=== PATIENT | male | born 1945 | race Caucasian/White ===

== ENCOUNTER 2022-06-27 10:54 | Day surgery (SDC) | payer MEDICARE, BC ==
[~2022-06-27] VITALS: Ht 182.9 cm; Wt 90.2 kg
[2022-06-27] VITALS (11 sets, daily range): BP systolic 128–200; BP diastolic 84–125
[~2022-06-27 10:54] MED LIST: ASPI1CPM9 PO; ENOX100S3 SQ; SYN0.025T PO
[2022-06-27] MEDS ORDERED: WARF-55 PO (11:22)
[2022-06-27] MEDS ORDERED: LEVO300T2 PO (11:22)
[2022-06-27] MEDS ORDERED: SOTA80TA73 PO (11:22)
[2022-06-27] MEDS ORDERED: BENA10TA75 PO (11:22)
[2022-06-27] MEDS ORDERED: CHLO25TA10 PO (11:22)
[2022-06-27] MEDS ORDERED: MIDAZolam 1mg/ml 10ml vial IV ONE (11:25)
[2022-06-27] MEDS ORDERED: fentaNYL/PF 50MCG/1 ML 2ML syringe IV ONE (11:25)
[2022-06-27] MEDS ORDERED: normal saline 1000ml 1,000 ML IV SCH (11:25)
== END 2022-06-27 14:50 | disposition home or self-care (01) ==
LOC: SSTAY O 10:54
PROVIDERS: ATTEND Student in an Organized Health Care Education/Training Program
DX: I48.91 Unspecified atrial fibrillation (principal); E03.9 Hypothyroidism, unspecified; Z86.73 Personal history of transient ischemic attack (TIA), and cerebral infarction without residual deficits; Z79.899 Other long term (current) drug therapy; Z98.890 Other specified postprocedural states
CPT/HCPCS: 92960; 93005; J2250; J3010; J7030; A4620

== ENCOUNTER 2024-03-25 15:56 | Inpatient (IN) | payer MEDICARE, BC ==
[~2024-03-25] VITALS: Ht 177.8 cm; Wt 97.8 kg
[2024-03-25] VITALS (8 sets, daily range): BP systolic 85–115; BP diastolic 57–84; PULSE 103–124; RESP 14–39; TEMP 101.5; O2SAT 87–94
[~2024-03-25 15:56] MED LIST changes: -ASPI1CPM9 PO; +BENA10TA75 PO; +CHLO25TA10 PO; -ENOX100S3 SQ; +LEVO300T2 PO; +SOTA80TA73 PO; -SYN0.025T PO; +WARF-55 PO
[2024-03-25 16:44] LABS: BASOPHILS # (AUTO) 0.3 X10'3 (0-0.2); EOSINOPHILS % (AUTO) 0.1 % (0-6); HEMATOCRIT 50.9 % (42.0-52.0); HEMOGLOBIN 17.1 g/dl (14.0-17.9); LYMPHOCYTES # (AUTO) 0.2 X10'3 (1.1-4.8); LYMPHOCYTES % (AUTO) 0.5 % (21-51); MEAN CORPUSCULAR HEMOGLOBIN 30.8 PG (27.0-31.0); MEAN CORPUSCULAR HGB CONC 33.6 g/dL (33.0-36.5); MEAN CORPUSCULAR VOLUME 91.8 FL (78-98); MEAN PLATELET VOLUME 7.5 FL (7.4-10.4); MONOCYTES # (AUTO) 0.4 X10'3 (0-0.9); MONOCYTES % (AUTO) 1.1 % (2-12); NEUTROPHILS # (AUTO) 31.9 X10'3 (1.8-7.7); NEUTROPHILS % (AUTO) 97.3 % (42-75); PLATELET COUNT 264 X10'3 (140-440); RED BLOOD COUNT 5.54 X10'6 (4.70-6.10); RED CELL DISTRIBUTION WIDTH 15.9 % (11.5-14.5)
[2024-03-25 16:50] LABS: WHITE BLOOD COUNT 32.8 X10'3 (4.5-11.0)
[2024-03-25 17:03] LABS: BURR CELLS 1+; PLATELET ESTIMATE NORMAL; TOTAL CELLS COUNTED 100
[2024-03-25 17:04] LABS: ELLIPTOCYTES FEW
[2024-03-25 17:06] LABS: ABG BASE EXCESS -1.6 mmol/L (-2.0-2.0); ABG HCO3 19.4 mmol/L (22.0-26.0); ABG OXYGEN SATURATION 95.5 % (94-97); ABG PCO2 (T) 25.3 mmHg (35.0-48.0); ABG PH (T) 7.502 (7.340-7.440); ABG PO2 (T) 73.6 mmHg (75.0-100.0); ALLEN'S TEST POSITIVE; FCOHb 0.3 % (0.0-3.9); FHHb 4.5 % (0.0-5.0); FMetHb 0.5 % (0.0-1.5); FO2Hb 94.7 % (94-97); MODE MASK - BIPAP; RESPIRATORY RATE 16 b/min; TOTAL HEMOGLOBIN 17.1 G/dl (14.0-17.9)
[2024-03-25 17:17] LABS: ALANINE AMINOTRANSFERASE 21 U/L (12-78); ALBUMIN 2.3 G/DL (3.4-5.0); ALBUMIN/GLOBULIN RATIO 0.5 (1.1-1.5); ALKALINE PHOSPHATASE 75 IU/L (46-116); ANION GAP 14 (8-16); ASPARTATE AMINO TRANSFERASE 16 U/L (10-37); BILIRUBIN,TOTAL 0.8 MG/DL (0.1-1.0); BLOOD UREA NITROGEN 68 MG/DL (7-18); BUN/CREATININE RATIO 29.6 (10.0-20.0); CALCIUM 9.3 MG/DL (8.5-10.1); CHLORIDE 103 MMOL/L (99-107); GLUCOSE 118 MG/DL (70-104); POTASSIUM 3.7 MMOL/L (3.5-5.1); SODIUM 139 MMOL/L (135-145); TOTAL CARBON DIOXIDE 22.1 MMOL/L (24-32); TOTAL PROTEIN 6.5 G/DL (6.4-8.2); eCRCL 28 ML/MIN; eGFR 28 ML/MIN
[2024-03-25 17:21] LABS: BILIRUBIN,DIRECT 0.4 MG/DL (0-0.3); MAGNESIUM 2.3 MG/DL (1.5-2.4)
[2024-03-25] MEDS: ringers solution, lacted 1,000 ML IV ONE (17:59)
[2024-03-25] MEDS: ringers solution, lactated 1000ml IV soln IV ONE ×2 (17:59→20:42)
[2024-03-25] MEDS: propofol 1000mg/100ml bottle 100 ML IV SCH (19:12)
[2024-03-25] MEDS: acetaminophen 1,000mg/100ml IV 100 ML IV ONE (19:15)
[2024-03-25] MEDS: etomidate 2mg/ml inj. IV ONE (19:15)
[2024-03-25] MEDS: rocuronium 10mg/ml inj IV ONE (19:16)
[2024-03-25] MEDS: MIDAZolam 5mg/ml 2ml vial IV ONE (19:17)
[2024-03-25] MEDS ORDERED: acetaminophen 325mg tablet PO PRN (20:05)
[2024-03-25 20:32] LABS: BILIRUBIN,URINE SMALL (Neg); CLARITY,URINE CLOUDY (Clear); COLOR,URINE AMBER (Yellow); GLUCOSE, URINE NEGATIVE (Neg); KETONES,URINE NEGATIVE (Neg); LEUKOCYTE ESTERASE ,URINE NEGATIVE (Neg); NITRITES, URINE NEGATIVE (Neg); OCCULT BLOOD,URINE MODERATE (Neg); PH,URINE 5.5 (4.8-8.0); PROTEIN,URINE 30 mg/dl (Neg); UROBILINOGEN,URINE 0.2 E.U/dL (0.2-1.0)
[2024-03-25 20:37] LABS: UA COLLECTION TYPE STRAIGHT CATH
[2024-03-25 20:40] LABS: AMORPHOUS URATES 1+; SQUAMOUS EPITHELIAL CELL,UR MODERATE /LPF (FEW)
[2024-03-25 20:41] LABS: TRANSITIONAL EPI CELLS,URINE FEW /HPF
[2024-03-25 20:42] LABS: BACTERIA,URINE FEW /HPF (Neg); WBC,URINE 0-4 /HPF (0-4)
[2024-03-25 20:43] LABS: FINE GRANULAR CAST 0-3 /LPF (NEGATIVE); HYALINE CASTS 0-3 /LPF (NEGATIVE); RBC,URINE 0-2 /HPF (0-2)
[2024-03-25] MEDS: vancomycin/NS 1 GM ADD-VANTAGE 250 ML X 1 DOSE IV ONE ×2 (21:08)
[2024-03-25 21:32] LABS: ABG OXYGEN SATURATION 90.1 % (94-97); ABG PH (T) 7.323 (7.340-7.440); ABG PO2 (T) 68.3 mmHg (75.0-100.0); ALLEN'S TEST Modified; FHHb 9.9 % (0.0-5.0); FMetHb 0.5 % (0.0-1.5); FO2Hb 89.6 % (94-97); MODE VENT-AC/VC; PATIENT TEMPERATURE 38.5; PEEP 5 cm H2O; RESPIRATORY RATE 14 b/min; TIDAL VOLUME 500 mL; TOTAL HEMOGLOBIN 16.9 G/dl (14.0-17.9)
[2024-03-25] MEDS: NORepinephrine 8mg/ 250ml NS 250 ML IV PRN (23:46)
[2024-03-26] VITALS (42 sets, daily range): BP systolic 83–111; BP diastolic 47–79; PULSE 101–134; RESP 14–29; O2SAT 87–99
[2024-03-26] MEDS: heparin, porcine 5000 units/ml vial SQ SCH (00:15)
[2024-03-26 03:27] LABS: ABG BASE EXCESS -3.5 mmol/L (-2.0-2.0); ABG HCO3 18.9 mmol/L (22.0-26.0); ABG OXYGEN SATURATION 90.9 % (94-97); ABG PCO2 (T) 28.5 mmHg (35.0-48.0); ABG PH (T) 7.441 (7.340-7.440); ABG PO2 (T) 58.4 mmHg (75.0-100.0); FCOHb 0.1 % (0.0-3.9); FHHb 9.1 % (0.0-5.0); FMetHb 0.1 % (0.0-1.5); FO2Hb 90.7 % (94-97); MODE AC/PRVC; PATIENT TEMPERATURE 37.1; PEEP 10 cm H2O; RESPIRATORY RATE 14 b/min; TIDAL VOLUME 500 mL; TOTAL HEMOGLOBIN 16.3 G/dl (14.0-17.9)
[2024-03-26 03:33] LABS: BASOPHILS % (AUTO) 0.1 % (0-1); EOSINOPHILS # (AUTO) 0.2 X10'3 (0-0.9); EOSINOPHILS % (AUTO) 0.8 % (0-6); HEMATOCRIT 45.1 % (42.0-52.0); HEMOGLOBIN 15.3 g/dl (14.0-17.9); LYMPHOCYTES # (AUTO) 0.3 X10'3 (1.1-4.8); MEAN CORPUSCULAR HEMOGLOBIN 30.9 PG (27.0-31.0); MEAN CORPUSCULAR HGB CONC 33.9 g/dL (33.0-36.5); MEAN CORPUSCULAR VOLUME 91.2 FL (78-98); MEAN PLATELET VOLUME 7.6 FL (7.4-10.4); MONOCYTES # (AUTO) 0.1 X10'3 (0-0.9); MONOCYTES % (AUTO) 0.4 % (2-12); NEUTROPHILS # (AUTO) 28.2 X10'3 (1.8-7.7); NEUTROPHILS % (AUTO) 97.7 % (42-75); PLATELET COUNT 250 X10'3 (140-440); RED BLOOD COUNT 4.95 X10'6 (4.70-6.10); RED CELL DISTRIBUTION WIDTH 15.4 % (11.5-14.5)
[2024-03-26 03:36] LABS: WHITE BLOOD COUNT 28.9 X10'3 (4.5-11.0)
[2024-03-26] MEDS ORDERED: fentaNYL/PF 50MCG/1 ML 2ML syringe IV PRN (03:40)
[2024-03-26 03:45] LABS: ALBUMIN 1.8 G/DL (3.4-5.0); ANION GAP 10 (8-16); BLOOD UREA NITROGEN 72 MG/DL (7-18); BUN/CREATININE RATIO 31.2 (10.0-20.0); CALCIUM 8.7 MG/DL (8.5-10.1); CHLORIDE 105 MMOL/L (99-107); CREATININE 2.31 MG/DL (0.60-1.10); GLUCOSE 96 MG/DL (70-104); MAGNESIUM 2.3 MG/DL (1.5-2.4); POTASSIUM 3.4 MMOL/L (3.5-5.1); SODIUM 140 MMOL/L (135-145); TOTAL CARBON DIOXIDE 24.6 MMOL/L (24-32); eCRCL 28 ML/MIN; eGFR 28 ML/MIN
[2024-03-26] MEDS ORDERED: LEVO175T2 PO (03:49)
[2024-03-26] MEDS ORDERED: BENA40TA73 PO (03:50)
[2024-03-26] MEDS ORDERED: AMLO2.5T2 PO (03:55)
[2024-03-26] MEDS ORDERED: WARF-55 PO (03:55)
[2024-03-26] MEDS ORDERED: METO-395 PO (03:58)
[2024-03-26] MEDS ORDERED: ROSU20TA2 PO (04:00)
[2024-03-26] MEDS ORDERED: MECO10005 PO (04:02)
[2024-03-26] MEDS ORDERED: OMEG-133 PO (04:02)
[2024-03-26] MEDS ORDERED: CALC1CAP PO (04:11)
[2024-03-26] MEDS ORDERED: LUTE1CAP5 PO (04:14)
[2024-03-26] MEDS ORDERED: SAW450CA7 PO (04:15)
[2024-03-26] MEDS: potassium Cl 20mEq/100mL bag 100 ML IV SCH (04:15)
[2024-03-26 04:45] LABS: PLATELET ESTIMATE NORMAL; TOTAL CELLS COUNTED 100
[2024-03-26 04:47] LABS: BURR CELLS 1+; TEAR DROP CELLS FEW
[2024-03-26] MEDS: acetaminophen 325mg/10.15ml oral unit dose solution OGT PRN (08:00)
[2024-03-26] MEDS: lansoprazole 15mg solutab OGT SCH (08:00)
[2024-03-26] MEDS: amiodarone 150mg/dext, iso-os 100 ML IV ONE (08:30)
[2024-03-26] MEDS: levoFLOXACIN-Levaquin 750MG/D5 150 ML IV STA (08:52)
[2024-03-26] MEDS: fentaNYL/PF 50MCG/1 ML 2ML syringe IV ONE (09:03)
[2024-03-26] MEDS: amiodarone/D5 360MG/200ML BAG 200 ML IV SCH (09:03)
[2024-03-26] MEDS: ipratropium/albuterol 3ml nebule NEB SCH (09:06)
[2024-03-26 09:12] LABS: ALBUMIN 1.9 G/DL (3.4-5.0); ANION GAP 10 (8-16); BLOOD UREA NITROGEN 74 MG/DL (7-18); CALCIUM 8.8 MG/DL (8.5-10.1); CHLORIDE 107 MMOL/L (99-107); CREATININE 2.31 MG/DL (0.60-1.10); GLUCOSE 78 MG/DL (70-104); POTASSIUM 3.8 MMOL/L (3.5-5.1); SODIUM 141 MMOL/L (135-145); TOTAL CARBON DIOXIDE 23.9 MMOL/L (24-32); eCRCL 28 ML/MIN; eGFR 28 ML/MIN
[2024-03-26] MEDS: acetylcysteine 200 MG/ml 4ml vial INH SCH (09:23)
[2024-03-26] MEDS: FENTANYL-0.9 % NACL/PF 100 ML IV SCH (09:28)
[2024-03-26] MEDS ORDERED: AMLO5TAB PO (10:21)
[2024-03-26] MEDS ORDERED: MULT-1085 PO (10:21)
[2024-03-26] MEDS: albumin (human) 25% 100ml IV 400 ML IV ONE (11:42)
[2024-03-26] MEDS: ringers solution, lacted 1,000 ML IV SCH (11:53)
[2024-03-26] MEDS: albumin (Human) 5% 250ml 250 ML IV SCH (12:08)
[2024-03-26 15:04] LABS: PROTHROMBIN TIME 89.9 SECONDS (9.0-12.0)
[2024-03-26 15:07] LABS: INR > 8.0 INR
[2024-03-26] MEDS ORDERED: phytonadione inj. 5 MG in normal saline 100ml IV soln 100 ML IV ONE (15:20)
[2024-03-26] MEDS: phytonadione 10 MG/1 ML amp NG ONE (17:14)
[2024-03-26] MEDS: NORepinephrine 8mg/ 250ml NS 250 ML IV PRN (17:21)
[2024-03-27] VITALS (44 sets, daily range): BP systolic 75–122; BP diastolic 47–74; PULSE 102–140; RESP 14–22; O2SAT 89–97
[2024-03-27] MEDS: PERFLUTREN PROTEIN-A MICROSPHR (Optison) 0.22 MG/ML 3ML VIAL IV ONE (01:40)
[2024-03-27 02:46] LABS: BASOPHILS # (AUTO) 0.2 X10'3 (0-0.2); BASOPHILS % (AUTO) 0.7 % (0-1); EOSINOPHILS # (AUTO) 0.4 X10'3 (0-0.9); EOSINOPHILS % (AUTO) 1.3 % (0-6); HEMATOCRIT 36.9 % (42.0-52.0); HEMOGLOBIN 12.3 g/dl (14.0-17.9); LYMPHOCYTES # (AUTO) 0.5 X10'3 (1.1-4.8); LYMPHOCYTES % (AUTO) 1.8 % (21-51); MEAN CORPUSCULAR HEMOGLOBIN 30.9 PG (27.0-31.0); MEAN CORPUSCULAR HGB CONC 33.3 g/dL (33.0-36.5); MEAN CORPUSCULAR VOLUME 92.6 FL (78-98); MEAN PLATELET VOLUME 7.5 FL (7.4-10.4); MONOCYTES % (AUTO) 0.1 % (2-12); NEUTROPHILS # (AUTO) 27.8 X10'3 (1.8-7.7); NEUTROPHILS % (AUTO) 96.1 % (42-75); PLATELET COUNT 193 X10'3 (140-440); RED BLOOD COUNT 3.99 X10'6 (4.70-6.10); RED CELL DISTRIBUTION WIDTH 16.7 % (11.5-14.5)
[2024-03-27 02:49] LABS: WHITE BLOOD COUNT 28.9 X10'3 (4.5-11.0)
[2024-03-27 02:55] LABS: ALBUMIN 3.4 G/DL (3.4-5.0); ANION GAP 14 (8-16); BLOOD UREA NITROGEN 79 MG/DL (7-18); BUN/CREATININE RATIO 28.6 (10.0-20.0); CALCIUM 8.3 MG/DL (8.5-10.1); CHLORIDE 105 MMOL/L (99-107); CREATININE 2.76 MG/DL (0.60-1.10); GLUCOSE 123 MG/DL (70-104); MAGNESIUM 2.3 MG/DL (1.5-2.4); PHOSPHORUS 6.1 MG/DL (2.3-4.5); PREALBUMIN 9.4 MG/DL (19-36); SODIUM 141 MMOL/L (135-145); TOTAL CARBON DIOXIDE 22.3 MMOL/L (24-32); eCRCL 23 ML/MIN; eGFR 22 ML/MIN
[2024-03-27 02:56] LABS: POTASSIUM 3.6 MMOL/L (3.5-5.1)
[2024-03-27 03:05] LABS: PROTHROMBIN TIME 89.9 SECONDS (9.0-12.0)
[2024-03-27 03:06] LABS: INR > 8.0 INR
[2024-03-27 03:22] LABS: ABG OXYGEN SATURATION 94.1 % (94-97); ABG PCO2 (T) 42.2 mmHg (35.0-48.0); ABG PH (T) 7.284 (7.340-7.440); ABG PO2 (T) 67.1 mmHg (75.0-100.0); ALLEN'S TEST POSITIVE; FCOHb 0.3 % (0.0-3.9); FHHb 5.9 % (0.0-5.0); FMetHb 0.3 % (0.0-1.5); FO2Hb 93.5 % (94-97); MODE VENT - AC; PATIENT TEMPERATURE 35.2; PEEP 10 cm H2O; RESPIRATORY RATE 14 b/min; TIDAL VOLUME 500 mL; TOTAL HEMOGLOBIN 13.1 G/dl (14.0-17.9)
[2024-03-27 03:46] LABS: TOTAL CELLS COUNTED 100
[2024-03-27 03:47] LABS: ANISOCYTOSIS 1+; PLATELET ESTIMATE NORMAL
[2024-03-27 03:50] LABS: BURR CELLS 1+; TEAR DROP CELLS FEW; TOXIC GRANULATION 1+; TOXIC VACUOLATION FEW
[2024-03-27] MEDS: pantoprazole 40MG/NS 100ML BAG 100 ML IV SCH (07:46)
[2024-03-27] MEDS: cefepime 1GM/NS ADD-VANTAGE 100 ML IV SCH (07:46)
[2024-03-27] MEDS: phytonadione inj. 10 MG in normal saline 100ml IV soln 100 ML IV ONE (10:25)
[2024-03-27 12:12] LABS: SODIUM,URINE RANDOM < 15 MEQ/L
[2024-03-27 12:14] LABS: CLARITY,URINE Cloudy (Clear); COLOR,URINE Brown (Yellow); UA COLLECTION TYPE FOLEY CATH
[2024-03-27 12:16] LABS: BACTERIA,URINE 1+ /HPF (Neg); RBC,URINE TNTC /HPF (0-2); SQUAMOUS EPITHELIAL CELL,UR NONE SEEN /LPF (FEW)
[2024-03-27 13:02] LABS: UA EOSINOPHILS NO EOS /HPF
[2024-03-27] MEDS: sennosides/docusate sodium tablet PO SCH (20:29)
[2024-03-27 20:38] LABS: INR 2.3 INR; PROTHROMBIN TIME 23.3 SECONDS (9.0-12.0)
[2024-03-27] MEDS: FENTANYL-0.9 % NACL/PF 100 ML IV SCH (22:00)
[2024-03-27] MEDS: propofol 1000mg/100ml bottle 100 ML IV SCH (22:01)
[2024-03-28] VITALS (48 sets, daily range): BP systolic 76–109; BP diastolic 45–69; PULSE 109–131; RESP 16; O2SAT 87–95
[2024-03-28] MEDS: metoclopramide 5 mg/ml inj IV SCH (00:59)
[2024-03-28] MEDS ORDERED: NORepinephrine 32 MG in normal saline 250ml IV soln 218 ML IV SCH (01:50)
[2024-03-28 03:09] LABS: ABG BASE EXCESS -7.8 mmol/L (-2.0-2.0); ABG HCO3 19.1 mmol/L (22.0-26.0); ABG OXYGEN SATURATION 91.2 % (94-97); ABG PCO2 (T) 44.3 mmHg (35.0-48.0); ABG PH (T) 7.253 (7.340-7.440); ABG PO2 (T) 64.8 mmHg (75.0-100.0); ALLEN'S TEST Modified; FCOHb 0.3 % (0.0-3.9); FHHb 8.8 % (0.0-5.0); FO2Hb 90.9 % (94-97); MODE VENT - PRVC; PATIENT TEMPERATURE 37.1; PEEP 10 cm H2O; RESPIRATORY RATE 16 b/min; TIDAL VOLUME 500 mL; TOTAL HEMOGLOBIN 13.3 G/dl (14.0-17.9)
[2024-03-28 03:27] LABS: BASOPHILS # (AUTO) 0.2 X10'3 (0-0.2); BASOPHILS % (AUTO) 0.4 % (0-1); EOSINOPHILS # (AUTO) 0.6 X10'3 (0-0.9); EOSINOPHILS % (AUTO) 1.7 % (0-6); HEMATOCRIT 37.7 % (42.0-52.0); HEMOGLOBIN 12.3 g/dl (14.0-17.9); LYMPHOCYTES # (AUTO) 0.4 X10'3 (1.1-4.8); LYMPHOCYTES % (AUTO) 1.2 % (21-51); MEAN CORPUSCULAR HEMOGLOBIN 30.3 PG (27.0-31.0); MEAN CORPUSCULAR HGB CONC 32.7 g/dL (33.0-36.5); MEAN CORPUSCULAR VOLUME 92.9 FL (78-98); MEAN PLATELET VOLUME 8.3 FL (7.4-10.4); MONOCYTES # (AUTO) 0.6 X10'3 (0-0.9); MONOCYTES % (AUTO) 1.6 % (2-12); NEUTROPHILS # (AUTO) 33.5 X10'3 (1.8-7.7); NEUTROPHILS % (AUTO) 95.1 % (42-75); PLATELET COUNT 195 X10'3 (140-440); RED BLOOD COUNT 4.06 X10'6 (4.70-6.10); RED CELL DISTRIBUTION WIDTH 16.3 % (11.5-14.5)
[2024-03-28 03:32] LABS: WHITE BLOOD COUNT 35.2 X10'3 (4.5-11.0)
[2024-03-28 03:36] LABS: PROTHROMBIN TIME 19.5 SECONDS (9.0-12.0)
[2024-03-28 03:40] LABS: ALANINE AMINOTRANSFERASE 33 U/L (12-78); ALBUMIN 3.2 G/DL (3.4-5.0); ALBUMIN/GLOBULIN RATIO 1.3 (1.1-1.5); ALKALINE PHOSPHATASE 100 IU/L (46-116); ANION GAP 16 (8-16); ASPARTATE AMINO TRANSFERASE 85 U/L (10-37); BLOOD UREA NITROGEN 82 MG/DL (7-18); BUN/CREATININE RATIO 22.2 (10.0-20.0); CALCIUM 8.1 MG/DL (8.5-10.1); CHLORIDE 105 MMOL/L (99-107); GLUCOSE 89 MG/DL (70-104); MAGNESIUM 2.5 MG/DL (1.5-2.4); PHOSPHORUS 5.2 MG/DL (2.3-4.5); SODIUM 142 MMOL/L (135-145); TOTAL CARBON DIOXIDE 21.1 MMOL/L (24-32); TOTAL PROTEIN 5.6 G/DL (6.4-8.2); eCRCL 17 ML/MIN; eGFR 16 ML/MIN
[2024-03-28 03:41] LABS: POTASSIUM 4.1 MMOL/L (3.5-5.1)
[2024-03-28] MEDS: NORepinephrine 32 MG in normal saline 250ml IV soln 218 ML IV PRN ×2 (03:53→17:58)
[2024-03-28 04:55] LABS: ANISOCYTOSIS 1+; PLATELET ESTIMATE NORMAL; TOTAL CELLS COUNTED 100
[2024-03-28 04:57] LABS: BURR CELLS 1+; SCHISTOCYTES FEW; TEAR DROP CELLS 1+
[2024-03-28] MEDS ORDERED: DEXTROSE 15 GM of carb/4 tabs (each vial/BOTTLE has 4 tablets) PO PRN ×2 (08:25)
[2024-03-28] MEDS ORDERED: glucagon, human recombinant 1mg kit SUBCUT PRN (08:25)
[2024-03-28] MEDS: dextrose 50%-water 50ml dispensing syringe IV PRN ×2 (08:56→14:16)
[2024-03-28] MEDS: dextrose 50%-water 50ml dispensing syringe IV ONE (09:10)
[2024-03-28] MEDS: levoFLOXACIN-Levaquin 750MG/D5 150 ML IV SCH (09:18)
[2024-03-28] MEDS ORDERED: vasopressin inj. 40 UNIT in dextrose 5%-water 50ml 38 ML IV SCH (09:40)
[2024-03-28] MEDS ORDERED: vasopressin inj. 40 UNIT in normal saline 50ml IV soln 38 ML IV SCH (09:42)
[2024-03-28] MEDS: vasopressin inj. 40 UNIT in normal saline 50ml IV soln 38 ML IV SCH (11:53)
[2024-03-28 21:02] LABS: ABG PH (T) 7.281 (7.340-7.440); ALLEN'S TEST Modified; MODE VENT - prvc; PATIENT TEMPERATURE 36.6; PEEP 10 cm H2O; RESPIRATORY RATE 16 b/min; TIDAL VOLUME 500 mL
[2024-03-28 21:03] LABS: ABG HCO3 17.1 mmol/L (22.0-26.0); ABG PO2 (T) 61.2 mmHg (75.0-100.0); FCOHb 0.3 % (0.0-3.9); FMetHb 0.1 % (0.0-1.5); FO2Hb 91.6 % (94-97); TOTAL HEMOGLOBIN 12.8 G/dl (14.0-17.9)
[2024-03-28] MEDS: sennosides/docusate sodium tablet OGT SCH (21:59)
[2024-03-29] VITALS (24 sets, daily range): BP systolic 97–122; BP diastolic 57–71; PULSE 105–117; RESP 12–16; O2SAT 87–94
[2024-03-29 02:49] LABS: BASOPHILS # (AUTO) 0.1 X10'3 (0-0.2); BASOPHILS % (AUTO) 0.4 % (0-1); EOSINOPHILS # (AUTO) 0.6 X10'3 (0-0.9); EOSINOPHILS % (AUTO) 1.6 % (0-6); HEMATOCRIT 35.4 % (42.0-52.0); HEMOGLOBIN 11.7 g/dl (14.0-17.9); LYMPHOCYTES # (AUTO) 0.3 X10'3 (1.1-4.8); LYMPHOCYTES % (AUTO) 0.9 % (21-51); MEAN CORPUSCULAR HEMOGLOBIN 30.3 PG (27.0-31.0); MEAN CORPUSCULAR HGB CONC 33.1 g/dL (33.0-36.5); MEAN CORPUSCULAR VOLUME 91.7 FL (78-98); MEAN PLATELET VOLUME 8.1 FL (7.4-10.4); MONOCYTES # (AUTO) 0.6 X10'3 (0-0.9); MONOCYTES % (AUTO) 1.5 % (2-12); NEUTROPHILS # (AUTO) 34.8 X10'3 (1.8-7.7); NEUTROPHILS % (AUTO) 95.6 % (42-75); PLATELET COUNT 151 X10'3 (140-440); RED BLOOD COUNT 3.86 X10'6 (4.70-6.10)
[2024-03-29 02:58] LABS: WHITE BLOOD COUNT 36.4 X10'3 (4.5-11.0)
[2024-03-29 03:02] LABS: ALBUMIN 3.3 G/DL (3.4-5.0); ANION GAP 15 (8-16); BLOOD UREA NITROGEN 80 MG/DL (7-18); CALCIUM 8.3 MG/DL (8.5-10.1); CHLORIDE 104 MMOL/L (99-107); CREATININE 4.45 MG/DL (0.60-1.10); MAGNESIUM 2.3 MG/DL (1.5-2.4); SODIUM 138 MMOL/L (135-145); eCRCL 14 ML/MIN; eGFR 13 ML/MIN
[2024-03-29 03:07] LABS: GLUCOSE 114 MG/DL (70-104); POTASSIUM 4.2 MMOL/L (3.5-5.1)
[2024-03-29 03:25] LABS: ABG BASE EXCESS -9.5 mmol/L (-2.0-2.0); ABG HCO3 16.4 mmol/L (22.0-26.0); ABG PCO2 (T) 35.5 mmHg (35.0-48.0); ABG PH (T) 7.282 (7.340-7.440); ALLEN'S TEST Modified; FCOHb 0.3 % (0.0-3.9); FMetHb 0.3 % (0.0-1.5); FO2Hb 91.4 % (94-97); MODE VENT - PRVC; PATIENT TEMPERATURE 36.6; PEEP 10 cm H2O; RESPIRATORY RATE 16 b/min; TIDAL VOLUME 500 mL; TOTAL HEMOGLOBIN 12.5 G/dl (14.0-17.9)
[2024-03-29 04:32] LABS: ALANINE AMINOTRANSFERASE 29 U/L (12-78); ALBUMIN/GLOBULIN RATIO 1.3 (1.1-1.5); ALKALINE PHOSPHATASE 105 IU/L (46-116); BILIRUBIN,TOTAL 2.4 MG/DL (0.1-1.0); PHOSPHORUS 4.9 MG/DL (2.3-4.5); TOTAL PROTEIN 5.8 G/DL (6.4-8.2)
[2024-03-29 05:22] LABS: ASPARTATE AMINO TRANSFERASE 83 U/L (10-37)
[2024-03-29] MEDS: morphine 10mg/ml inj. IV PRN (14:36)
== END 2024-03-29 17:27 | DRG 871 ==
LOC: ER 15:57 → ED HOLD 20:14 → CICU 2S 21:42
PROVIDERS: ADMIT Student in an Organized Health Care Education/Training Program; ATTEND Student in an Organized Health Care Education/Training Program
PROC: 5A1945Z Respiratory Ventilation, 24-96 Consecutive Hours (ICD-10-PCS; 2024-03-25)
PROC: 0BH17EZ Insertion of Endotracheal Airway into Trachea, Via Natural or Artificial Opening (ICD-10-PCS; 2024-03-25)
PROC: 05H533Z Insertion of Infusion Device into Right Subclavian Vein, Percutaneous Approach (ICD-10-PCS; 2024-03-25)
PROC: B546ZZA Ultrasonography of Right Subclavian Vein, Guidance (ICD-10-PCS; 2024-03-25)
PROC: 5A09357 Assistance with Respiratory Ventilation, Less than 24 Consecutive Hours, Continuous Positive Airway Pressure (ICD-10-PCS; 2024-03-25)
PROC: 30233K1 Transfusion of Nonautologous Frozen Plasma into Peripheral Vein, Percutaneous Approach (ICD-10-PCS; principal; 2024-03-27)
DX: A41.9 Sepsis, unspecified organism (principal); J18.9 Pneumonia, unspecified organism; R65.21 Severe sepsis with septic shock; J80 Acute respiratory distress syndrome; D68.9 Coagulation defect, unspecified; J98.11 Atelectasis; N17.9 Acute kidney failure, unspecified; E87.20 Acidosis, unspecified; Z66 Do not resuscitate; E78.00 Pure hypercholesterolemia, unspecified; E87.70 Fluid overload, unspecified; I12.9 Hypertensive chronic kidney disease with stage 1 through stage 4 chronic kidney disease, or unspecified chronic kidney disease; I48.91 Unspecified atrial fibrillation; E05.90 Thyrotoxicosis, unspecified without thyrotoxic crisis or storm; N18.30 Chronic kidney disease, stage 3 unspecified; Z79.01 Long term (current) use of anticoagulants; Z86.73 Personal history of transient ischemic attack (TIA), and cerebral infarction without residual deficits; Z51.5 Encounter for palliative care
CPT/HCPCS: 36415; 36430; 36600; 71045; 71250; 74176; 76881; 80048; 80053; 80076; 81001; 82570; 82803; 82948; 83036; 83605; 83735; 84100; 84134; 84145; 84156; 84300; 84484; 85007; 85018; 85025; 85610; 86885; 86900; 86901; 87040; 87070; 87081; 87207; 93005; 93306; 94002; 94003; 94640; 94660; 94760; 94799; 99285; A6212; A6213; A6449; A7015; C1751; C1758; C9113; G0378; J0131; J0282; J0692; J1644; J1956; J2250; J2274; J2704; J2765; J3010; J3370; J3430; J3480; J3490; J7030; J7040; J7050; J7120; P9045; P9047; P9059